=== PATIENT | male | born 1970 | race Caucasian/White ===

== ENCOUNTER 2019-05-28 02:06 | Day surgery (SDC) | payer BC, SELFPAY ==
[2019-05-23 10:35] VITALS: BMI 33.5
[2019-05-28 09:14] VITALS: BP 121/83; PULSE 71; RESP 16; TEMP 35.9; O2SAT 98; BMI 32.8
[2019-05-28] MEDS: LACTATED RINGERS 1,000 ML 150 ML IV CONT (09:30)
--- NOTE | 2019-05-28 09:39 | PM.HPGS ---
History of Present Illness History of Present Illness Consent: Risks, benefits, and alternatives have been discussed and questions answered. Patient agrees to proceed with procedure. Chief complaint: Neoplasm Screening Narrative: Terry Herrera III is a 48 year old W male referred for his 1st screening colonoscopy. Patient is asymptomatic and there is no family history of colon polyps or colon cancer. [facility], [facility] Past Medical History Medical History Herpes zoster without complication Surgical History Surgical History (Updated 05/28/19 @ 09:40 by Juan Luis Huber MD) H/O vasectomy Status post left inguinal hernia repair Social History Social History Smoking status: Never smoker Second hand tobacco smoke exposure: No Alcohol intake: current Meds Home Medications and Allergies Home Medications Medication Instructions Recorded Confirmed Type aspirin 81 mg tablet,delayed 81 mg PO DAILY 05/20/19 05/28/19 History release Allergies Allergy/AdvReac Type Severity Reaction Status Date / Time Penicillins Allergy Unknown Rash Verified 05/28/19 09:13 Vital Signs Vital Signs - 24 hr 05/28/19 09:14 Temperature 35.9 C L Pulse Rate 71 Respiratory Rate 16 Blood Pressure 121/83 Pulse Oximetry 98 Exam Const: Orientation/consciousness: patient oriented x3 Resp: Auscultation: clear to auscultation bilaterally Cardio: Rate: regular rate Rhythm: regular rhythm Heart sounds: no murmurs GI: GI Palp: Yes Soft to palpation, No Tenderness to palpation present (GI), Yes No hepatosplenomegaly present and No Palpable mass present Auscultation: normal bowel sounds Neuro: General: patient oriented x3 and no focal motor deficits Extrem: General: no pedal edema Assessment and Plan Additional Plan screening colonoscopy in average risk patient
--- NOTE | 2019-05-28 09:55 | WPDANESEPPF ---
Anes - Initial Pre Proc Eval Procedure: Operation Date: 05/28/19 10:30 Proposed Procedures p Screening Colonoscopy - Juan Luis Huber MD Date/Time: 05/28/19 09:55 Surgeon: Juan Luis Huber MD Pre Op Diagnosis: Neoplasm Screening Patient Data Age: 48 Gender: M Height: 6 ft Weight: 109.7 kg Last Vital Signs Temp 35.9 C L 05/28/19 09:14 Pulse 71 05/28/19 09:14 Resp 16 05/28/19 09:14 BP 121/83 05/28/19 09:14 Pulse Ox 98 05/28/19 09:14 Allergies Allergy/AdvReac Type Severity Reaction Status Date / Time Penicillins Allergy Unknown Rash Verified 05/28/19 09:13 Home Medications Medication Instructions Recorded Confirmed Type aspirin 81 mg tablet,delayed 81 mg PO DAILY 05/20/19 05/28/19 History release Patient hx anesthesia problems: none Family hx anesthesia problems: none PMFSH Past Medical History Medical History Herpes zoster without complication Surgical History Surgical History H/O vasectomy Status post left inguinal hernia repair Family History Family History Father Hypertension Family history of cardiovascular disease Mother Patient's mother is in good health Social History Social History Smoking status: Never smoker Second hand tobacco smoke exposure: No Alcohol intake: current Anes - Eval Final PreProcedure Day of Procedure 05/28/19 09:55 Patient weight: overweight Heart: regular rate and rhythm Lungs: clear to auscultation Airway: Mallampati scale class II Neurological: alert and oriented Last oral intake: >/= 8 hours ASA classification: II Emergent: no Anesthetic plan: proceed Anesthesia type and monitoring: general GIVS and standard monitoring Informed Consent: The patient's anesthetic plan and its attendant risks and benefits were discussed with the patient/family/POA. Questions were solicited and answers provided to the satisfaction of the patient/family/POA.
[2019-05-28 10:30] VITALS: BP 109/73; PULSE 69; RESP 14; O2SAT 99
[2019-05-28 10:40] VITALS: BP 109/73; PULSE 66; RESP 20; O2SAT 99
[2019-05-28 10:50] VITALS: BP 121/51; PULSE 66; RESP 24; O2SAT 97
== END 2019-05-28 10:59 | disposition home or self-care (01) ==
PROVIDERS: PCP Internal Medicine; Visit Provider Internal Medicine Gastroenterology
PROC: 0DJD8ZZ Inspection of Lower Intestinal Tract, Via Natural or Artificial Opening Endoscopic (ICD-10-PCS; CPT 45378; principal; 2019-05-28 10:30)
DX: Z12.11 Encounter for screening for malignant neoplasm of colon (principal); Z79.82 Long term (current) use of aspirin
CPT/HCPCS: 45378; J2704; J7120

== ENCOUNTER 2020-04-11 03:06 | Emergency (ER) | payer BC, SELFPAY ==
--- NOTE | ~2020-04-11 | CT_ITS ---
EXAMINATION: CT abdomen pelvis wo con DATE: 04/11/2020 05:08 INDICATION: Right flank pain TECHNIQUE: Computed tomography (CT) of the abdomen and pelvis was performed without intravenous contr ast. The dose-length product (DLP) was 1254.97 mGy-cm. Automated exposure control and iterative recon struction technique were employed. COMPARISON: None FINDINGS: Minimal dependent atelectasis is present in the lung bases. The heart size is normal. Nodul es of the visualized lung bases measure up to 4 mm. The liver is diffusely low in attenuation when co mpared with the spleen, consistent with hepatic steatosis. The spleen, pancreas, gallbladder, and adr enal glands are normal. There is a 2 mm stone of the distal right ureter which causes mild right hydr oureteronephrosis. The left kidney is unremarkable. No stones are identified in the kidneys, the left ureter, or the bladder. No pathologically enlarged abdominal or pelvic lymph nodes are identified. T here is no free intraperitoneal gas or evidence of bowel obstruction. The appendix is normal. IMPRESSION: 1. 3 mm stone of the distal right ureter causing mild right hydroureteronephrosis. 2. Diffuse hepatic steatosis. Reviewed, dictated and finalized at location A. ENT ASSISTANT IMPRESSION: 1. 3 mm stone of the distal right ureter causing mild right hydroureteronephros is. 2. Diffuse hepatic steatosis.
[2020-04-11 03:08] VITALS: BP 143/95; PULSE 89; RESP 20; TEMP 37; O2SAT 99
--- NOTE | 2020-04-11 03:30 | ED.ABDPAIN ---
HPI - Abdominal Pain General Chief Complaint: Abdominal Pain Stated Complaint: Flank pain Time Seen by Provider: 04/11/20 03:29 Source: patient Mode of arrival: ambulatory Limitations: no limitations History of Present Illness HPI narrative: The patient is a 49 yo male who presents of evaluation of right flank pain. Patient reports acute onset of right flank pain that was sudden early this morning. Pt with pain that radiates into the right lower abdomen and right testicle. It is associated with nausea and vomiting. He denies fever or chills. He denies diarrhea. He denies history of kidney stones in the past. Related Data Home Medications Medication Instructions Recorded Confirmed aspirin 81 mg tablet,delayed 81 mg PO DAILY 05/20/19 05/28/19 release Allergies Allergy/AdvReac Type Severity Reaction Status Date / Time Penicillins Allergy Unknown Rash Verified 04/11/20 03:11 Review of Systems Review of Systems: Narrative: CONSTITUTIONAL: Denies fever, chills, or sweats. EYES: Denies visual changes, redness, or discharge. ENT: Denies rhinorrhea, congestion, sore throat, or otalgia. CARDIOVASCULAR: Denies chest pain, palpitations, or edema. RESPIRATORY: Denies cough or dyspnea. GASTROINTESTINAL: Reports right lower abdominal pain, reports nausea and vomiting GENITOURINARY: Denies dysuria or hematuria. SKIN: Denies rash or itching. MUSCULOSKELETAL: Reports right flank pain NEUROLOGIC: Denies headache, numbness, or weakness. [facility] Past Medical History Medical History (Updated 04/11/20 @ 05:43 by Pearl Brooks MD) Herpes zoster without complication Surgical History Surgical History H/O vasectomy Status post left inguinal hernia repair Family History Family History Father Hypertension Family history of cardiovascular disease Mother Patient's mother is in good health Social History Social History Smoking status: Never smoker Second hand tobacco smoke exposure: No Alcohol intake: current Gender identity (if verbalized by the patient): Male Exam Narrative: Exam Narrative: GENERAL: Awake, alert, conversant HEAD: Normocephalic, atraumatic. EYES: PERRLA and EOMI. ENT: Nares clear, no rhinorrhea or epistaxis. Mucous membranes moist. NECK: Supple. CHEST: No respiratory distress, breathing even and non labored HEART: Regular rate, sinus rhythm ABDOMEN:Non distended, mild RLQ tenderness, mild right flank tenderness, no rashes EXTREMITIES: Normal range of motion. No edema. SKIN: Warm, dry, no rash. NEURO:No focal deficits. Alert and oriented x3 Course Vital Signs Vital signs: Vital Signs Temperature 37.0 C 04/11/20 03:08 Pulse Rate 89 04/11/20 03:08 Respiratory Rate 20 04/11/20 03:08 Blood Pressure 143/95 H 04/11/20 03:08 Pulse Oximetry 99 04/11/20 03:08 Temperature 37.0 C 04/11/20 03:08 Pulse Rate 89 04/11/20 03:08 Respiratory Rate 20 04/11/20 03:08 Blood Pressure 143/95 H 04/11/20 03:08 Pulse Oximetry 99 04/11/20 03:08 MDM - Abdominal Pain MDM Narrative Medical decision making narrative: Patient is a 49-year-old who presented for evaluation of right flank pain. At the time of assessment, ABCs are intact and vital signs are stable. Patient does have some mild right flank tenderness and right lower abdominal tenderness on exam. There is hematuria without signs of a urinary tract infection. No leukocyte esterase, nitrate negative. No white blood cells. Patient does not have a leukocytosis. No acute kidney injury or electrolyte derangement. Patient with a CT scan that confirms a 3 mm right ureteral stone. Patient pain is improved at the time of reassessment. Patient will be discharged home with antiemetic, Flomax, pain medication as well as urology follow-up. Patient advised to return s
[2020-04-11 04:04] LABS: Basophils Absolute Auto 0.1 K/mm3 (0.0-0.1); Eosinophils Absolute Auto 0.2 K/mm3 (0-0.3); Eosinophils Percent Auto 2.2 % (0-4.4); Hematocrit 46.6 % (42.0-52.0); Hemoglobin 16.2 g/dL (14.0-18.0); Immature Granulocyte Absolute 0.08 K/mm3 (0.00-0.031); Lymphocytes Absolute Auto 2.45 K/mm3 (0.9-3.2); Mean Corpuscular HGB Conc 34.8 g/dl (32-36); Mean Corpuscular Hemoglobin 29.4 pg (26-34); Mean Corpuscular Volume 84.6 fl (80-100); Mean Platelet Volume 8.7 fl (7.4-10.4); Monocytes Absolute Auto 0.7 K/mm3 (0.1-0.6); Monocytes Percent Auto 8.6 % (2.6-8.5); Neutrophils Absolute Auto 4.4 K/mm3 (1.3-6.7); Neutrophils Percent Auto 56.2 % (45.5-73.1); Platelet Count Result 291 k/mm3 (150-375); Red Blood Count 5.51 M/mm3 (4.6-6.20); Red Cell Distribution Width 13.2 % (11.5-14.5); White Blood Count 7.9 K/mm3 (4.5-10.0)
[2020-04-11 04:18] LABS: Add Urine Microscopic? YES; Appearance Urine Cloudy (Clear); Bilirubin Urine Negative (Negative); Blood Urine 3+ (Negative); Calcium Oxalate Crystals Urine Present /hpf; Color Urine Yellow (Yellow); Glucose Urine UA Negative (Negative); Ketones Urine Negative (Negative); Leukocyte Esterase Ur Negative LEU/UL (Negative); Mucus Urine Heavy /lpf; Nitrate Urine Negative (Negative); Protein Urine 1+ mg/dL (Negative); RBC Urine >75 /hpf (0-2); Squamous Epithelial Cell Urine Rare /hpf (Few); Urobilinogen Urine Negative mg/dL (<2.0); WBC Urine 0-3 /hpf
[2020-04-11] MEDS: MORPHINE SULFATE (*CRX) 4 MG/ML INJ IV PUSH ×2 (04:22→06:37)
[2020-04-11] MEDS: ONDANSETRON INJ 4 MG/2 ML VIAL IV PUSH (04:22)
--- NOTE | 2020-04-11 05:03 | PC.NURSE ---
Patient being taken to CT.
[2020-04-11 05:47] LABS: Anion Gap 7 mmol/L (8-16); Blood Urea Nitrogen 11 mg/dL (9-20); Calcium 8.8 mg/dL (8.4-10.2); Carbon Dioxide 28 mmol/L (22-30); Chloride 103 mmol/L (98-107); Estimated Glomerular Filt Rate > 60; Glucose 123 mg/dL (75-110); Potassium 4.2 mmol/L (3.4-5.0); Sodium 138 mmol/L (137-145)
[2020-04-11 06:14] VITALS: BP 131/91; PULSE 84; RESP 16; TEMP 37; O2SAT 98
[2020-04-11] MEDS: METOCLOPRAMIDE HCL INJ 10 MG/2 ML VIAL IV PUSH (06:37)
== END 2020-04-11 06:46 | disposition home or self-care (01) ==
PROVIDERS: Emergency Provider Emergency Medicine; PCP Internal Medicine
DX: N13.2 Hydronephrosis with renal and ureteral calculous obstruction (principal); Z79.82 Long term (current) use of aspirin; K76.0 Fatty (change of) liver, not elsewhere classified
CPT/HCPCS: 36415; 74176; 80048; 81001; 85025; 96374; 96375; 96376; 99284; J2270; J2405; J2765

== ENCOUNTER 2025-02-10 09:14 | Outpatient (CLI) | payer BC, SELFPAY ==
--- OUTSIDE RECORDS SUMMARY | 2025-02-10 10:15 | XMS_ITS | Clinical Summary ---
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
--- OUTSIDE RECORDS SUMMARY | 2025-02-10 10:15 | XMS_ITS | Clinical Summary ---
Author Organization [facility] [address] Address [address] [place] [id number] Care Team Providers Care Foam Molder Name Role Phone Unknown, Notinfile Primary Care Provider Unavail able Allergies No known active allergies Medications No known medications Active Problems No known active problems Immunizations Immunization Administration Dates Next Due Influenza, Quadrivalent, Willow l Culture-based MDCK, Preservative Free, Antibiotic Free, Intramuscular 02/28/2020 Influenza, Quadrivalent, Spl it, Preservative Free, Intramuscular 03/25/2021,06/28/2015 ZOSTER Recombinant 06/25/2020,04/17/2020 Social History Tobacco Use Types Packs/Day Years Used Date Smoking Tobacco: Never Personal Safety Answer Date Recorded Getting School Help Needed Not on file 07/14 Sex and Gender Information Value Date Recorded Sex Assigned at Not on file Legal Sex Male 9:28 AM CDT Gender Identity Male 11/02/2021 9:36 AM CDT Sexual Orientation Not on file Obstetrics History Last Filed Vital Signs Vital Sign Reading Time Taken Comments Blood Pressure 119/87 11/02/2021 9:49 AM CDT Pulse 74 11/02/2021 9:49 AM CDT Temperature 37.1 C (98.7 F) 11/02/2021 9:49 AM CDT Respiratory Rate - - Oxygen Saturation 95% 11/02/2021 9:49 AM CDT Inhaled Oxygen Concentration - - Weight 112.2 kg (247 lb 4.8 oz) 11/02/2021 9:49 AM CDT Height 182.9 cm (6') 11/02/2021 9:49 AM CDT Body Mass Index 33.54 11/02/2021 9:49 AM CDT Plan of Treatment Health Maintenance Due Date Last Done Comments Colon Cancer Screening-Colonoscopy 1968 Depression Screening 1968 Hepatitis C Screening 1968 Prostate Cancer Screening-PSA 1968 DTaP/Tdap/Td Vaccine (1 - Tdap) 07/25/1979 Hepatitis B Screening 1986 Regular Well Visit/Exam 18-64 1986 Covid-19 Vaccine (4 - 2024-2 6 season) 2024 03/25/2021, 08/08/2020, 07/18/2020 Influenza Vaccine (#1) 2024 , 02/28/2020, 06/28/2015 Zoster Vaccine Completed 06/25/2020, 04/17/2020 Pneumococcal vaccine <65 Aged Out No longer eligible based on patient's age to complete this topic Insurance [employer] OOS Care Teams Foam Molder Relationship Specialty Start Date End Date Unknown, Notinfile PCP - General 11/02/21
--- OUTSIDE RECORDS SUMMARY | 2025-02-10 10:15 | XMS_ITS | Encounter Summary ---
Author Organization [facility] Address 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
[2025-03-05 12:11] VITALS: BMI 33.9
--- NOTE | 2025-03-05 12:11 | WPDHOMESLEEP ---
Sleep Study - Home Unattended Date of Study: 02/10/25 Ordering Provider: Ave Vazquez APRN Interpreting Provider: Hannah Brandt, DO Home Sleep Study Type: Watch PAT Height: 1.83 m Weight: 113.398 kg Body Mass Index: 33.9 Neck Circumference (inches): 16 [place]: 12 Reason for Sleep Study Daytime hypersomnia Sleep History The patient is a 54-year-old male that had a sleep study ordered by his primary care for evaluation of sleep apnea. The patient admits to snoring loudly, excessive daytime sleepiness, trouble falling asleep and trouble staying asleep. He denies having interruptions in breathing while asleep. He denies choking or gasping at night. He does have trouble breathing on his back. He denies morning headaches. He does have a dry or sore mouth / throat in the morning. He does have nocturnal heartburn. He denies nocturia. He does have trouble returning to sleep if he wakes up throughout the night. He denies any hypnotic or sedative use. He denies feeling anxious about sleep. He does feel tired or sleepy during the day. He does feel tired in the morning. He does have the urge to fall asleep during the day. He denies feeling drowsy while driving. He denies sleep paralysis, cataplexy and hypnagogic/ hypnopompic hallucinations. He does clench jerk grind his teeth. He does kick or jerk is legs excessively. He does have a restless feeling in his legs that causes an urge to move his legs. It gets better with activity and worse with rest. It is worse in the evening. It does not cause a disturbance in his sleep. He goes to bed at 12:15 a.m. on work days and at 1:00 a.m. on his days off. It takes him 45 minutes to fall asleep on work days and 30 minutes on his days off. He gets 4-1/2 hours of sleep per night. His sleep is not restorative on his days off. He denies taking any planned naps. He denies dream enactment behavior. He denies sleep walking. He consumes 1-2 cups of caffeinated beverage per day. He consumes 1 alcoholic beverage 1-2 nights per week. He denies tobacco use. He denies exercising on a regular basis. [facility] Past Medical History Medical History Screening for lipoid disorders Hyperglycemia Encounter to establish care GERD (gastroesophageal reflux disease) Herpes zoster without complication Surgical History Surgical History Status post left inguinal hernia repair H/O vasectomy Family History Family History Father Hypertension Family history of cardiovascular disease Mother Patient's mother is in good health Son Asthma Daughter Asthma Social History Social History Social History: Caffeine Coffee when on the road. Max 2 a day between sofa, coffee and tea Smoking status: Never smoker Second hand tobacco smoke exposure: No Alcohol intake: current Alcohol use details: Occasionally 2 beers Substance use: never Substance use type: does not use Do You Feel Safe in your Home?: Yes Lack of Transportation: No Lack of Food: Never True Current Housing: I Have Housing Concerned About Future Housing: No Difficulty Paying Gas/Electric Bills: No Difficulty Paying for Meds: No Currently Unemployed: No Education: Bachelor's Degree Difficulty w/ Childcare or Family Care: No Living arrangements: with family Occupation/Education: occupation Gender identity (if verbalized by the patient): Male Additional gender identity comments: ALISTAIR Lainez Sexual Orientation (if Verbalized by the Patient): Straight or Heterosexual Spiritual care concerns: No Agree to blood products: Yes Medications Home Medications ?Medication ?Instructions ?Recorded ?Confirmed ?Type No Home Medications 07/11/23 01/06/25 History Sleep Procedure The sleep study was completed using HighlightT a technically adequate device with seven channels: peripheral arterial tone, actigraphy, body position, snore, respiratory movement, pulse oximetry, sleep staging, and heart rate. Prior to using the device, the patient received verbal and written instructions for its application and was provided with the help desk phone number for additional telephonic instruction with 24-hour availability of qualified personnel to answer questions. The study was scored using CMS guidelines. Sleep Architecture The total recording time is 6 hrs, 22 min. The total sleep time is 5 hrs, 29 min. Sleep latency is 18 minutes. REM latency is 36 minutes. The patient had 7 episodes of waking. Sleep architecture shows 7.6% deep sleep, 78.9% light sleep, and (as % Total Sleep Time) showed NREM (Light 78.9%; Deep 7.6%), and a 13.5% stage REM. The patient spent 16.1% of total sleep time in the supine position. Sleep efficiency was 86.13. Respiratory Analysis The overall AHI (pAHI 4%:) is 13.0. The overall AHI (pAHI 3%:) is 16.5. The central AHI is 6.5. The AHI was 16.3 in NREM and 17.6 in REM sleep. The AHI was 63.9 in Supine and 7.4 in Non-supine sleep. Percent of [place] respirations is 0.0. Oximetry Data The oxygen desaturation index (MILAGROS 4%:) is 9.5. The mean saturation is 94%, and the lowest saturation is 88%. Time spent with saturation < 88% is 0.0 minutes. Snoring Profile Snoring average intensity is 40 dB. The patient snored above 45 decibels for 5.7 minutes, 1.7% of sleep time. Cardiac Profile The average pulse rate is 56 beats per minutes. The lowest pulse rate is 46 bpm. The highest pulse rate reported is 92 bpm. Atrial fibrillation was not detected. Premature beats occur <0.1 per minute. Assessment and Plan Assessment and Plan (1) ALFRED (obstructive sleep apnea): Code(s): G47.33 - Obstructive sleep apnea (adult) (pediatric) Status: Acute Assessment and Plan: The patient had an overall AHI of 13.0 with desaturation down to 88%. This is consistent with mild sleep apnea. Due to the patient's excessive daytime sleepiness, he qualifies for treatment. I recommend that the patient be prescribed AutoPAP 5-15 cm H2O, CPAP mask/filters/tubing and heated humidity. A mandibular advancement device is also an acceptable treatment option. This should be used with all episodes of sleep.? Compliance should be reviewed within 31-90 days of starting therapy for usage greater than 4 hours per night greater than 70% of the nights. The patient should be asked about symptoms such as?excessive daytime sleepiness, quality of sleep, decreased nocturia, increased?mental functioning such as memory, mood, and concentration. The patient's sleep history is highly suggestive of Restless Leg Syndrome. I recommend that the patient have a serum ferritin drawn for evaluation of iron deficiency anemia. If the patient has a serum ferritin less than 75 ng/mL, I recommend starting a daily iron supplement and a Vitamin C supplement for better absorption. If the serum ferritin is greater than 75 ng/mL, I recommend starting a dopamine agonist and titrating the dose until symptoms resolve. There are nonpharmacological methods to treat limb movements including daily exercise, stretching calf muscles before bed, avoiding excessive amounts of caffeine and alcohol, vitamin B supplementation, magnesium lotion massaged into legs before bed, and use of a weighted blanket. Data The data obtained during this sleep study is adequate for interpretation. Certification This sleep study has been reviewed by a board certified sleep medicine physician.
== END 2025-02-11 11:54 | disposition home or self-care (01) ==
PROVIDERS: PCP Internal Medicine; Visit Provider Clinical Nurse Specialist
DX: G47.33 Obstructive sleep apnea (adult) (pediatric) (principal); G47.10 Hypersomnia, unspecified
CPT/HCPCS: 95800